=== PATIENT | female | born 1935 | race Two or more races ===

== ENCOUNTER 2020-08-30 05:54 | Day surgery (SDC) | payer OTHER ==
[~2020-08-30 05:54] MED LIST: LOSARTAN-HCTZ1 EACH PO; NORVASC5 MG PO; SYNTHROID50 MCG PO
== END 2020-08-30 16:45 | disposition home or self-care (01) ==
LOC: CIR.AMB 05:54
PROVIDERS: ATTEND Orthopaedic Surgery Hand Surgery
DX: S52.532S Colles' fracture of left radius, sequela (principal); M24.532 Contracture, left wrist; Z20.822 Contact with and (suspected) exposure to COVID-19